=== PATIENT | male | born 1995 | race American Indian/Alaskan Native ===

== ENCOUNTER 2018-09-30 17:20 | Emergency (ER) | payer SELFPAY ==
[2018-09-30 17:32] VITALS: RESP 18; TEMP 98
[2018-09-30] MEDS ORDERED: TDAP Vaccine 0.5 mL Syr IM ONE (17:45)
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
[2018-09-30] MEDS ORDERED: Lidocaine 1%/Epinephrine 1:100000 30 ml vial IJ ONE (18:55)
[2018-09-30 20:35] VITALS: BP 149/99; PULSE 93; O2SAT 96
--- NOTE | 2018-10-01 12:17 | RAD ---
Date of service: 09/30/2018 PROCEDURE: Radiographs of the Left Forearm HISTORY: laceration COMPARISON: None available. TECHNIQUE: Frontal and lateral views obtained. 2 views obtained. FINDINGS: BONES: No fracture or destructive lesion. JOINT SPACES: Unremarkable. OTHER FINDINGS: Soft tissue injury/laceration with both deep and superficial components. There is a linear foreign body adjacent to the proximal ulna. This measures 4 mm. The finding is marked on the study for review. IMPRESSION: Soft tissue injury/laceration with small foreign body proximal left forearm.
== END 2018-09-30 20:55 | disposition short-term general hospital (02) ==
LOC: ED 17:20
DX: S51.812A Laceration without foreign body of left forearm, initial encounter (principal); S50.12XA Contusion of left forearm, initial encounter; X99.9XXA Assault by unspecified sharp object, initial encounter; Y92.009 Unspecified place in unspecified non-institutional (private) residence as the place of occurrence of the external cause; Z23 Encounter for immunization